=== PATIENT | female | born 1965 | race Caucasian/White ===

== ENCOUNTER → 2020-01-18 11:30 | Outpatient (CLI) | payer BC, SELFPAY ==
--- NOTE | 2020-01-18 11:00 | RAD_ITS ---
CLINICAL HISTORY: Female, 54 years old. Left hip pain. No known injury. PROCEDURE: ARTHROGRAM - LEFT HIP CONSENT: The procedure as well as the benefits and possible complications including bleeding and infection were explained to the patient. Informed consent was obtained. FLUOROSCOPY TIME (if supplied): (49 seconds) minutes/seconds Injection Information: 10 cc of dilute DOTAREM Number of images obtained: 1 TECHNIQUE: (All elements of maximal sterile barrier technique followed, including US elements as applicable) The patient was in the supine position. The overlying skin was prepped and draped in the usual sterile fashion. Following local anesthetic application and under direct fluoroscopic guidance, puncture of the left hip joint was obtained. 2 cc of Isovue-300 was injected for confirmation. Following this, 10 cc of dilute MRI contrast was injected. The patient tolerated the procedure well. RAD/Arthrogram Hip w/ MRI IMPRESSION: Left hip arthrogram for MRI examination. Electronically Signed: Nikos Shearer, at 13:38 EST , Service support ,
--- NOTE | 2020-01-18 11:50 | MRI_ITS ---
STUDY: MRI LEFT HIP REASON FOR EXAM: Female, 54 years old. LEFT HIP SPRAIN, no known injury , painful hip COMPARISON: No relevant priors. TECHNIQUE: Intra-articular injection of a 10 ml solution of 0.8 ml of the program in 10 ml of saline was performed by Dr. Shearer. T1 fat suppressed images were obtained in all three orthogonal planes. FINDINGS: There is extravasated extra articular fluid tracking in the rectus femoris muscle arising from the anterior inferior iliac spine. There is labral tear of the anterior labrum which extends into the superior labrum (sagittal T2 fat sat postcontrast series 6, image 15; coronal T2 fat sat postcontrast series 4, images 9-12 at the chondral labral junction. There is thinning of the hyaline cartilage of the left hip, but without chondral delamination. Normal gluteus minimus, medius and iliopsoas tendons and distal insertions. There is no trochanteric, iliopsoas or iliopectineal bursitis. Normal superior and inferior pubic rami. Normal pubic symphysis. Normal ischial tuberosity. Normal origin of the hamstring tendons. MRI/Lower Ext/Jt Only/W Contrast IMPRESSION: 1. Labral tear of the anterior and superior labrum. 2. Diffuse thinning of the hyaline cartilage of the hip but without chondral delamination. Electronically Signed: Dion Jackson, at 14:43 EST Tel , Service support ,
== END ==
PROVIDERS: PCP Preventive Medicine Occupational Medicine; Referring Provider Specialist; Visit Provider Specialist
DX: S73.192D Other sprain of left hip, subsequent encounter (principal)
CPT/HCPCS: 27093; 73722; 77002; A9575; Q9967

== ENCOUNTER 2023-11-02 11:20 | Day surgery (SDC) | payer BC, SELFPAY ==
[2023-11-02] VITALS (9 sets, daily range): BP systolic 120–141; BP diastolic 69–92; PULSE 50–62; RESP 16–18; TEMP 36.3–37.1; O2SAT 96–100; BMI 31.5
[2023-11-02] MEDS: Lactated Ringers 1,000 ML 15 ML IV (11:59)
[2023-11-02 12:04] LABS: Internal QC Validated? YES +Cl - CLEAR BKGD; Pregnancy, Urine Negative Negative; Record Kit Lot#,Urine Preg HCG0000667200
[2023-11-02] MEDS: Cefazolin 2 GM in 0.9% Normal Saline (100mL Bag) 100 ML IV (13:30)
[2023-11-02] MEDS: Epinephrine (1 mg/ml) 1 MG/ML VIAL (13:43)
[2023-11-02] MEDS: Bupivacaine Mpf 0.5% 30 ML VIAL (13:44)
--- NOTE | 2023-11-02 14:06 | PCM.OPRPT ---
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 Description of Procedure: With appropriate informed consent, the patient was taken to the operative suite. After induction of general and regional anesthesia and administration of the preoperative antibiotics, the well leg was fitted with ROME and SCD's and well padded. The left knee was placed into the arthroscopy leg fraser, prepped and draped sterilely. The standard arthroscopy portals were pre-injected with 0.5% Marcaine with epinephrine. A lateral portal was established. The diagnostic arthroscopy was begun. The patellofemoral joint revealed grade 2-3 chondromalacia diffusely of the patella and trochlea. The medial compartment was entered and the medial portal was established. A probe was utilized to probe the medial meniscus. There was a multi layered medial meniscal tear and grade 2-3 chondromalacia of the medial femoral condyle. ACL and PCL were probed and intact. The lateral compartment was entered. There was no pathology. Subsequently, a partial [medial ] meniscectomy was performed using a combination of straight and angled basket punches. The meniscotome was then utilized to remove the fragments of cartilage and then to smooth the remainder of the meniscus to a firm and stable rim. A shaver was used to perform a chondroplasty on the [PFJ and MFC ] to smooth the roughened surface cartilage and remove any delaminated cartilage. Thereafter, the arthroscopy instruments and fluid were removed. The portals were closed with interrupted sutures of 4-0 nylon followed by application of a sterile well-padded dressing and SARAHI wrap. The patient was extubated and transferred to the PACU in stable and satisfactory condition. Riki Mariee DO Surgeon: Riki Mariee needle loom operator helper: None Type of Anesthesia: General Anesthesiologist: Johann Vogel Admglo VTE Documentation VTE Present on Admission: No VTE Mechan Device Prophylaxis: SCD's and Thigh High ROME Hose VTE Pharm Prophylaxis ordered?: No Reason prophylaxis not ordered:: Treatment Not Indicated
[2023-11-02] MEDS: HYDROcodone Bitartrate/Apap 5/325 Tablet PO (15:34)
== END 2023-11-02 15:45 | disposition home or self-care (01) ==
LOC: SDC 11:23 → AC 11:24
PROVIDERS: Anesthesiology; PCP Student in an Organized Health Care Education/Training Program; Referring Provider Orthopaedic Surgery; Visit Provider Orthopaedic Surgery
PROC: (CPT 29870; principal; 2023-11-02 12:40)
DX: S83.242A Other tear of medial meniscus, current injury, left knee, initial encounter (principal); M23.92 Unspecified internal derangement of left knee; M94.262 Chondromalacia, left knee; W01.0XXA Fall on same level from slipping, tripping and stumbling without subsequent striking against object, initial encounter
CPT/HCPCS: 29881; 01400; 81025; J7120; J2405